=== PATIENT | female | born 1990 | race Caucasian/White ===

== ENCOUNTER 2017-11-21 08:24 | Emergency (ER) | payer BC ==
[~2017-11-21] VITALS: Ht 177.8 cm; Wt 113.6 kg
[~2017-11-21 08:24] MED LIST: HORIZANT600 MG PO; METHADONE H10 MG/TAB PO; OXY IR5 MG PO; OXYCONTIN40 MG; STOOL SOFTENER100 M2 PO
[2017-11-21 08:26] VITALS: BP 134/86; PULSE 98; TEMP 98.5
[2017-11-21] MEDS ORDERED: BACTRIM DS 8001 TAB PO (08:45)
== END 2017-11-21 08:54 | disposition home or self-care (01) ==
LOC: COL.ER 08:24
DX: L03.115 Cellulitis of right lower limb (principal); N39.0 Urinary tract infection, site not specified; F32.9 Major depressive disorder, single episode, unspecified; M54.9 Dorsalgia, unspecified; G89.29 Other chronic pain; Z88.0 Allergy status to penicillin

== ENCOUNTER 2018-03-21 00:19 | Inpatient (IN) | payer BC ==
[~2018-03-21] VITALS: Ht 177.8 cm; Wt 99.8 kg
[2018-03-21] VITALS (11 sets, daily range): BP systolic 120–147; BP diastolic 70–95; PULSE 80–103; TEMP 98–98.7
[~2018-03-21 00:19] MED LIST changes: +BACTRIM DS 8001 TAB PO
[2018-03-21] MEDS ORDERED: COREG12.5 MG PO (01:42)
[2018-03-21] MEDS ORDERED: LUNESTA2 MG PO (01:43)
[2018-03-21] MEDS ORDERED: HCTZ12.5TAB PO (01:44)
[2018-03-21] MEDS ORDERED: REGLAN 5MG T5 MG/TAB PO (01:45)
[2018-03-21] MEDS ORDERED: MOTRIN 800800 MG/TAB PO (01:45)
[2018-03-21] MEDS ORDERED: TYLENOL 325MG325 MG PO (01:46)
[2018-03-21] MEDS ORDERED: DILAUDID 4MG TAB4 MG PO (01:47)
[2018-03-21 03:50] LABS: BASO # 0.1 (0.0-0.2); BASO % 0.3 % (0.0-2.0); EOS % 0.1 % (0-4.0); GRAN # 14.7 (1.4-6.5); GRAN % 81.6 % (42.2-75.2); HEMATOCRIT 40.7 % (37.0-47.0); HEMOGLOBIN 13.1 g/dl (12.5-16.0); LYMPH # 2.1 (1.2-3.4); LYMPH % 11.8 % (20.0-51.0); MEAN CELL VOLUME 83 fl (80.0-100.0); MEAN CORPUSCULAR HEMOGLOBIN 27 pg (27.0-31.0); MEAN CORPUSCULAR HGB CONC 32 g/dl (33.0-37.0); MEAN PLATELET VOLUME 8.1 fl (7.4-10.4); MONO % 5.8 % (1.7-9.3); PLATELET COUNT 334 K/mm3 (130-400); RED BLOOD COUNT 4.91 M/mm3 (4.10-5.30); REDCELL DISTRIBUTION WIDTH-CV 14.4 % (11.5-14.5)
[2018-03-21 03:56] LABS: INR 1.1 (0.8-3.0); PROTHROMBIN TIME 12.5 SECONDS (9.7-12.8)
[2018-03-21 04:04] LABS: ALBUMIN 3.6 gm/dL (3.5-5.0); BILIRUBIN,TOTAL 0.6 mg/dL (0.0-1.0); CALCIUM 9.3 mg/dL (8.4-10.2); CREATININE, serum 0.6 mg/dL (0.52-1.25); POTASSIUM 4.3 mmol/L (3.4-5.0); TOTAL PROTEIN 7.8 gm/dL (6.4-8.2)
[2018-03-21 04:08] LABS: PRE ALBUMIN 16.6 mg/dL (17.6-36.0)
[2018-03-21 04:15] LABS: C-REACTIVE PROTEIN 18.5 mg/dL (0.0-0.9)
[2018-03-21 12:06] LABS: COLLECTION METHOD CLEAN CATCH
[2018-03-21 12:21] LABS: TRICYCLIC ANTIDEPRESS URINE NEGATIVE
[2018-03-21 12:24] LABS: MUCOUS Present /lpf; PH 6 (5-8); URINE APPEARANCE Clear; URINE BACTERIA Rare /hpf; URINE BILIRUBIN Negative (NEGATIVE); URINE BLOOD Negative (NEGATIVE); URINE COLOR Yellow; URINE GLUCOSE Negative (NEGATIVE); URINE KETONE Negative (NEGATIVE); URINE LEUKOCYTE ESTERASE Trace (NEGATIVE); URINE NITRATE Negative (NEGATIVE); URINE PROTEIN(semi-quant) Negative (NEGATIVE); URINE RBC 0-2 /hpf; URINE UROBILINOGEN Negative (NEGATIVE)
[2018-03-22 04:55] VITALS: BP 137/89; PULSE 86; TEMP 98.2
[2018-03-22 07:21] LABS: BASO % 0.2 % (0.0-2.0); GRAN # 13.9 (1.4-6.5); GRAN % 81.8 % (42.2-75.2); LYMPH % 11.6 % (20.0-51.0); MEAN CELL VOLUME 82 fl (80.0-100.0); MEAN CORPUSCULAR HGB CONC 33 g/dl (33.0-37.0); MEAN PLATELET VOLUME 8.2 fl (7.4-10.4); MONO # 0.9 (0.1-0.6); MONO % 5.5 % (1.7-9.3); PLATELET COUNT 329 K/mm3 (130-400); RED BLOOD COUNT 4.07 M/mm3 (4.10-5.30); REDCELL DISTRIBUTION WIDTH-CV 14.3 % (11.5-14.5)
[2018-03-22 07:24] LABS: HEMATOCRIT 33.2 % (37.0-47.0); HEMOGLOBIN 10.8 g/dl (12.5-16.0); MEAN CORPUSCULAR HEMOGLOBIN 27 pg (27.0-31.0)
[2018-03-22 07:32] LABS: CALCIUM 8.3 mg/dL (8.4-10.2); CREATININE, serum 0.53 mg/dL (0.52-1.25); POTASSIUM 4.1 mmol/L (3.4-5.0)
[2018-03-22 08:32] VITALS: BP 134/85; PULSE 80; TEMP 98.1
[2018-03-22] MEDS ORDERED: NEURONTIN600 MG/TAB PO (10:42)
[2018-03-22] MEDS ORDERED: LIORESAL20 MG PO (10:43)
[2018-03-22] MEDS ORDERED: DESYREL 100MG100 MG PO (10:44)
[2018-03-22] MEDS ORDERED: PROZAC 20MG20 MG PO (11:58)
[2018-03-22 13:49] VITALS: BP 126/86; PULSE 85; TEMP 97.8
[2018-03-22 19:33] VITALS: BP 136/82; PULSE 84; TEMP 98.2
[2018-03-23] VITALS (15 sets, daily range): BP systolic 115–151; BP diastolic 65–90; PULSE 78–92; TEMP 97.8–98.5
[2018-03-23 07:00] LABS: HEMOGLOBIN 10.3 g/dl (12.5-16.0); MEAN CELL VOLUME 85 fl (80.0-100.0); MEAN CORPUSCULAR HEMOGLOBIN 27 pg (27.0-31.0); MEAN CORPUSCULAR HGB CONC 32 g/dl (33.0-37.0); MEAN PLATELET VOLUME 8.3 fl (7.4-10.4); PLATELET COUNT 292 K/mm3 (130-400); REDCELL DISTRIBUTION WIDTH-CV 14.6 % (11.5-14.5)
[2018-03-23 07:01] LABS: HEMATOCRIT 32.2 % (37.0-47.0)
[2018-03-23 07:25] LABS: CALCIUM 8.4 mg/dL (8.4-10.2); CREATININE, serum 0.6 mg/dL (0.52-1.25); POTASSIUM 3.4 mmol/L (3.4-5.0)
[2018-03-23 09:56] LABS: BAND 7 % (0-10); BASOPHIL 1 % (0-2); LYMPHOCYTE 32 % (20.0-51.0); NEUTROPHILS 53 % (42.0-75.2)
[2018-03-23 09:57] LABS: PLATELET ESTIMATE NORMAL (NORMAL)
[2018-03-24 04:20] VITALS: BP 139/88; PULSE 81; TEMP 97.8
[2018-03-24 07:12] VITALS: BP 140/90; PULSE 87; TEMP 98.7
[2018-03-24 09:44] LABS: BASO % 0.4 % (0.0-2.0); EOS # 0.1 (0.0-0.7); GRAN # 4.2 (1.4-6.5); GRAN % 61.3 % (42.2-75.2); LYMPH # 1.8 (1.2-3.4); LYMPH % 26.8 % (20.0-51.0); MEAN CELL VOLUME 83 fl (80.0-100.0); MEAN CORPUSCULAR HEMOGLOBIN 27 pg (27.0-31.0); MEAN CORPUSCULAR HGB CONC 32 g/dl (33.0-37.0); MEAN PLATELET VOLUME 8.1 fl (7.4-10.4); MONO # 0.6 (0.1-0.6); MONO % 8.6 % (1.7-9.3); PLATELET COUNT 275 K/mm3 (130-400); RED BLOOD COUNT 3.74 M/mm3 (4.10-5.30); REDCELL DISTRIBUTION WIDTH-CV 14.3 % (11.5-14.5)
[2018-03-24 09:55] LABS: CALCIUM 8.7 mg/dL (8.4-10.2); CREATININE, serum 0.59 mg/dL (0.52-1.25); POTASSIUM 3.3 mmol/L (3.4-5.0)
[2018-03-24 11:26] VITALS: BP 141/86; PULSE 69; TEMP 98.8
[2018-03-24 15:46] VITALS: BP 128/88; PULSE 79; TEMP 98.4
[2018-03-24 20:17] VITALS: BP 137/91; PULSE 77; TEMP 97.9
[2018-03-25 04:00] VITALS: BP 131/70; PULSE 86; TEMP 98.4
[2018-03-25 07:27] VITALS: BP 131/71; PULSE 79; TEMP 98.6
[2018-03-25] MEDS ORDERED: ROCEPHIN 2GM VIAL21 IV (08:09)
[2018-03-25] MEDS ORDERED: ASPIRIN 32325 MG/TAB PO (08:10)
[2018-03-25 09:14] LABS: HEMOGLOBIN 11.3 g/dl (12.5-16.0); MEAN CELL VOLUME 82 fl (80.0-100.0); MEAN CORPUSCULAR HEMOGLOBIN 27 pg (27.0-31.0); MEAN CORPUSCULAR HGB CONC 32 g/dl (33.0-37.0); PLATELET COUNT 348 K/mm3 (130-400); RED BLOOD COUNT 4.24 M/mm3 (4.10-5.30); REDCELL DISTRIBUTION WIDTH-CV 14.2 % (11.5-14.5)
[2018-03-25 09:26] LABS: CALCIUM 9.5 mg/dL (8.4-10.2); CREATININE, serum 0.62 mg/dL (0.52-1.25); POTASSIUM 3.5 mmol/L (3.4-5.0)
[2018-03-25 09:31] LABS: HEMATOCRIT 34.9 % (37.0-47.0)
[2018-03-25 11:36] VITALS: BP 128/75; PULSE 78; TEMP 98.5
[2018-03-25 12:22] LABS: BAND 4 % (0-10); LYMPHOCYTE 23 % (20.0-51.0); NEUTROPHILS 66 % (42.0-75.2); PLATELET ESTIMATE NORMAL (NORMAL)
[2018-03-25 12:23] LABS: TOXIC GRANULATION PRESENT
[2018-03-25 15:36] VITALS: BP 128/79; PULSE 85; TEMP 98.4
[2018-03-25 21:09] VITALS: BP 141/87; PULSE 66; TEMP 98.1
[2018-03-26 01:49] VITALS: BP 125/70; PULSE 81; TEMP 98.4
[2018-03-26 04:00] VITALS: BP 135/87; PULSE 78; TEMP 97.9
[2018-03-26 07:57] VITALS: BP 145/90; PULSE 77; TEMP 98.5
[2018-03-26 08:40] LABS: CALCIUM 8.6 mg/dL (8.4-10.2); CREATININE, serum 0.55 mg/dL (0.52-1.25); POTASSIUM 3.7 mmol/L (3.4-5.0)
[2018-03-26] MEDS ORDERED: VANCOCIN HCL1 GM IV (09:23)
[2018-03-26] MEDS ORDERED: NS INT FLUSH 1010 ML IV ×2 (09:23→13:57)
[2018-03-26 09:36] LABS: BASO % 0.2 % (0.0-2.0); EOS # 0.1 (0.0-0.7); GRAN # 7.3 (1.4-6.5); GRAN % 71.3 % (42.2-75.2); HEMOGLOBIN 11.2 g/dl (12.5-16.0); LYMPH % 19.6 % (20.0-51.0); MEAN CELL VOLUME 82 fl (80.0-100.0); MEAN CORPUSCULAR HEMOGLOBIN 27 pg (27.0-31.0); MEAN CORPUSCULAR HGB CONC 33 g/dl (33.0-37.0); MEAN PLATELET VOLUME 7.9 fl (7.4-10.4); MONO # 0.7 (0.1-0.6); MONO % 6.6 % (1.7-9.3); PLATELET COUNT 368 K/mm3 (130-400); RED BLOOD COUNT 4.17 M/mm3 (4.10-5.30); REDCELL DISTRIBUTION WIDTH-CV 13.9 % (11.5-14.5)
[2018-03-26 09:40] LABS: HEMATOCRIT 34.2 % (37.0-47.0)
[2018-03-26] MEDS ORDERED: HEPARIN LOCK FLU5 M1 IV (13:57)
[2018-03-26 15:54] VITALS: BP 136/80; PULSE 111; TEMP 98.3
[2018-03-26 20:46] VITALS: BP 129/68; PULSE 86; TEMP 98.5
[2018-03-27 00:28] VITALS: BP 102/52; PULSE 64; TEMP 98
[2018-03-27 03:54] VITALS: BP 138/89; PULSE 91; TEMP 98.6
[2018-03-27 08:03] VITALS: BP 144/81; PULSE 85; TEMP 98.2
[2018-03-27 13:26] VITALS: BP 144/93; PULSE 77; TEMP 97.4
[2018-03-27] MEDS ORDERED: LEVAQUIN 5500 MG/TA1 PO (15:50)
[2018-03-27] MEDS ORDERED: PROZAC 20MG20 MG PO (16:02)
== END 2018-03-27 17:37 | disposition home health service (06) | DRG 854 ==
LOC: SURG 00:19
PROVIDERS: Hospitalist; Nurse Practitioner Family; Orthopaedic Surgery
PROC: 0R9K0ZZ Drainage of Left Shoulder Joint, Open Approach (ICD-10-PCS; 2018-03-21)
PROC: 0MD24ZZ Extraction of Left Shoulder Bursa and Ligament, Percutaneous Endoscopic Approach (ICD-10-PCS; principal; 2018-03-21 14:00)
PROC: 0R9K0ZZ Drainage of Left Shoulder Joint, Open Approach (ICD-10-PCS; 2018-03-23)
PROC: B5161ZZ Fluoroscopy of Right Subclavian Vein using Low Osmolar Contrast (ICD-10-PCS; 2018-03-27)
DX: A41.9 Sepsis, unspecified organism (principal); M00.812 Arthritis due to other bacteria, left shoulder; I82.291 Chronic embolism and thrombosis of other thoracic veins; I10 Essential (primary) hypertension; G89.29 Other chronic pain; F41.9 Anxiety disorder, unspecified
CPT/HCPCS: 99222-AI; 99223-AI; 99231-AI; 99232-AI; 99233-AI; 99239; A4314; C1751; C1788; C1894; J0696; J1100; J1170; J1885; J2250; J2270; J2405; J2550; J2704; J3010; J3370; J7030; J7040; J7050; J7120; L1830; Q9967

== ENCOUNTER → 2018-04-05 | Outpatient (CLI) | payer BC ==
[~2018-04-05] MED LIST changes: +ASPIRIN 32325 MG/TAB PO; +COREG12.5 MG PO; +DESYREL 100MG100 MG PO; +DILAUDID 4MG TAB4 MG PO; +HCTZ12.5TAB PO; +HEPARIN LOCK FLU5 M1 IV; +LEVAQUIN 5500 MG/TA1 PO; +LIORESAL20 MG PO; +LUNESTA2 MG PO; +MOTRIN 800800 MG/TAB PO; +NEURONTIN600 MG/TAB PO; +NS INT FLUSH 1010 ML IV; +PROZAC 20MG20 MG PO; +REGLAN 5MG T5 MG/TAB PO; +ROCEPHIN 2GM VIAL21 IV; +TYLENOL 325MG325 MG PO; +VANCOCIN HCL1 GM IV
[2018-04-05 13:55] LABS: BASO # 0.1 (0.0-0.2); BASO % 0.5 % (0.0-2.0); EOS # 0.1 (0.0-0.7); EOS % 0.8 % (0-4.0); GRAN # 6.4 (1.4-6.5); GRAN % 69.6 % (42.2-75.2); HEMOGLOBIN 11.1 g/dl (12.5-16.0); LYMPH # 2.2 (1.2-3.4); MEAN CELL VOLUME 83 fl (80.0-100.0); MEAN CORPUSCULAR HEMOGLOBIN 27 pg (27.0-31.0); MEAN CORPUSCULAR HGB CONC 33 g/dl (33.0-37.0); MEAN PLATELET VOLUME 8.4 fl (7.4-10.4); MONO # 0.5 (0.1-0.6); MONO % 4.9 % (1.7-9.3); PLATELET COUNT 541 K/mm3 (130-400); RED BLOOD COUNT 4.12 M/mm3 (4.10-5.30); REDCELL DISTRIBUTION WIDTH-CV 14.7 % (11.5-14.5)
[2018-04-05 13:56] LABS: HEMATOCRIT 34.1 % (37.0-47.0)
[2018-04-05 14:08] LABS: ALBUMIN 4.1 gm/dL (3.5-5.0); BILIRUBIN,TOTAL 0.3 mg/dL (0.0-1.0); C-REACTIVE PROTEIN 3.1 mg/dL (0.0-0.9); CALCIUM 9.9 mg/dL (8.4-10.2); CREATININE, serum 0.8 mg/dL (0.52-1.25); POTASSIUM 4.2 mmol/L (3.4-5.0)
[2018-04-05 14:16] LABS: ERYTHROCYTE SEDIMENTATION RATE 58 mm/hr (0-20)
== END ==
LOC: COL.LAB 13:38
PROVIDERS: Internal Medicine Infectious Disease
DX: A41.9 Sepsis, unspecified organism (principal)

== ENCOUNTER → 2018-04-19 | Outpatient (CLI) | payer BC ==
[2018-04-19 11:24] LABS: BASO % 0.4 % (0.0-2.0); EOS # 0.1 (0.0-0.7); EOS % 1.1 % (0-4.0); GRAN # 5.2 (1.4-6.5); GRAN % 62.8 % (42.2-75.2); HEMATOCRIT 38.9 % (37.0-47.0); HEMOGLOBIN 12.6 g/dl (12.5-16.0); LYMPH # 2.5 (1.2-3.4); LYMPH % 30.4 % (20.0-51.0); MEAN CELL VOLUME 86 fl (80.0-100.0); MEAN CORPUSCULAR HEMOGLOBIN 28 pg (27.0-31.0); MEAN CORPUSCULAR HGB CONC 32 g/dl (33.0-37.0); MEAN PLATELET VOLUME 8.5 fl (7.4-10.4); MONO # 0.4 (0.1-0.6); MONO % 5.1 % (1.7-9.3); PLATELET COUNT 395 K/mm3 (130-400); RED BLOOD COUNT 4.53 M/mm3 (4.10-5.30); REDCELL DISTRIBUTION WIDTH-CV 17.3 % (11.5-14.5)
[2018-04-19 11:37] LABS: ALBUMIN 4.5 gm/dL (3.5-5.0); BILIRUBIN,TOTAL 0.4 mg/dL (0.0-1.0); C-REACTIVE PROTEIN 1.9 mg/dL (0.0-0.9); CALCIUM 9.9 mg/dL (8.4-10.2); CREATININE, serum 0.89 mg/dL (0.52-1.25); POTASSIUM 4.4 mmol/L (3.4-5.0); TOTAL PROTEIN 8.4 gm/dL (6.4-8.2)
[2018-04-19 12:01] LABS: ERYTHROCYTE SEDIMENTATION RATE 14 mm/hr (0-20)
== END ==
LOC: COL.LAB 10:53
PROVIDERS: Internal Medicine Infectious Disease
DX: A41.9 Sepsis, unspecified organism (principal)

== ENCOUNTER 2018-10-09 17:01 | Emergency (ER) | payer BC ==
[~2018-10-09] VITALS: Ht 175.3 cm; Wt 102.3 kg
[2018-10-09 17:04] VITALS: TEMP 97.8
[2018-10-09 18:25] LABS: TRICYCLIC ANTIDEPRESS URINE NEGATIVE
[2018-10-09 18:28] LABS: BASO % 0.4 % (0.0-2.0); EOS # 0.1 (0.0-0.7); EOS % 1.1 % (0-4.0); GRAN # 4.4 (1.4-6.5); GRAN % 54.2 % (42.2-75.2); HEMATOCRIT 42.8 % (37.0-47.0); HEMOGLOBIN 14.4 g/dl (12.5-16.0); LYMPH # 3.1 (1.2-3.4); LYMPH % 38.3 % (20.0-51.0); MEAN CELL VOLUME 91 fl (80.0-100.0); MEAN CORPUSCULAR HEMOGLOBIN 30 pg (27.0-31.0); MEAN CORPUSCULAR HGB CONC 34 g/dl (33.0-37.0); MEAN PLATELET VOLUME 8.5 fl (7.4-10.4); MONO # 0.5 (0.1-0.6); MONO % 5.8 % (1.7-9.3); PLATELET COUNT 314 K/mm3 (130-400); RED BLOOD COUNT 4.73 M/mm3 (4.10-5.30); REDCELL DISTRIBUTION WIDTH-CV 14.5 % (11.5-14.5)
[2018-10-09 18:38] LABS: ALANINE AMINOTRANSFERASE 25 U/L (9-52); ALBUMIN 4.5 gm/dL (3.5-5.0); ALKALINE PHOSPHATASE 95 U/L (50-136); ANION GAP 9 mmol/L (7-16); AST,SGOT 31 U/L (15-37); BILIRUBIN,TOTAL 0.6 mg/dL (0.0-1.0); BLOOD UREA NITROGEN 13 mg/dL (7-17); CARBON DIOXIDE 25 mmol/L (22-30); CHLORIDE 108 mmol/L (98-107); CREATININE, serum 0.79 mg/dL (0.52-1.25); GLUCOSE 107 mg/dL (74-106); POTASSIUM 4.2 mmol/L (3.4-5.0); SODIUM 141 mmol/L (137-145); TOTAL PROTEIN 8.1 gm/dL (6.4-8.2)
[2018-10-09 18:39] LABS: ACETAMINOPHEN < 10 ug/mL (10-30); ALCOHOL(ethanol),MEDICAL < 10 mg/dL; SALICYLATE < 1.0 mg/dL
[2018-10-09 19:08] LABS: TSH w REFLEX 0.646 uIU/mL (0.465-4.680)
[2018-10-09] MEDS ORDERED: MULTIVITAMIN FO1 CAP PO (19:37)
[2018-10-09] MEDS ORDERED: NATURAL IRON65 MG PO (19:38)
[2018-10-09] MEDS ORDERED: BENADRYL25 M2 PO (19:38)
[2018-10-09] MEDS ORDERED: SPRINTEC 35 MCG1 TAB PO (19:39)
[2018-10-09] MEDS ORDERED: ZOFRAN8 MG PO (19:39)
[2018-10-09] MEDS ORDERED: PHENERGAN 25 TA25 MG PO (19:39)
[2018-10-09] MEDS ORDERED: TOPAMAX50 MG PO (19:40)
[2018-10-09] MEDS ORDERED: PRILOSEC 20MG20 MG PO (19:40)
[2018-10-09] MEDS ORDERED: ZYRTEC 10MG10 MG PO (19:41)
[2018-10-10 01:43] VITALS: BP 117/80; PULSE 90
== END 2018-10-10 02:46 ==
LOC: COL.ER 17:01
PROVIDERS: Emergency Medicine
DX: R45.851 Suicidal ideations (principal); F32.9 Major depressive disorder, single episode, unspecified; G89.29 Other chronic pain; M54.5 Low back pain; F17.210 Nicotine dependence, cigarettes, uncomplicated